=== PATIENT | female | born 1935 | race Caucasian/White ===

== ENCOUNTER 2017-02-28 16:07 | Emergency (ER) | payer MEDICARE ==
[~2017-02-28] VITALS: Ht 152.4 cm; Wt 54.4 kg
[2017-02-28] MEDS ORDERED: IV NS 0.9% 500 ML BAG IV ONE (16:30)
--- NOTE | 2017-02-28 16:30 | NUR ---
PT KATARINA RA FROM [facility], FOR GENERALIZED WEAKNESS AND REPORTS OF FREQUENT FALLS THE PAST FEW WEEKS. DENIES FALL TODAY. PT AAOX3. VSS. SEEN BY MD FOR EVAL. SAFETY AND COMFORT MEASURES PROVIDED. WILL MONITOR.
[2017-02-28 16:31] LABS: BASOPHILS # (AUTO) 0.3 /CMM (0.0-0.2); BASOPHILS % (AUTO) 3.3 % (0.0-2.0); EOSINOPHILS # (AUTO) 0.1 /CMM (0.0-0.7); EOSINOPHILS % (AUTO) 1.8 % (0.0-6.0); HEMATOCRIT 48 % (33-45); HEMOGLOBIN 15.4 g/dL (11.5-14.8); LYMPHOCYTES # (AUTO) 1.5 /CMM (0.8-4.8); LYMPHOCYTES % (AUTO) 19.6 % (20.0-44.0); MEAN CORPUSCULAR HEMOGLOBIN 29 PG (26.0-33.0); MEAN CORPUSCULAR HGB CONC 32 g/dl (31.0-36.0); MEAN CORPUSCULAR VOLUME 90 fL (82-100); MONOCYTES # (AUTO) 0.7 /CMM (0.1-1.30); MONOCYTES % (AUTO) 8.5 % (2.0-12.0); NEUTROPHILS # (AUTO) 5.2 /CMM (1.8-8.9); NEUTROPHILS % (AUTO) 66.8 % (43.0-81.0); PLATELET COUNT (AUTO) 193 /CMM (150-450); RED BLOOD CELL COUNT(AUTO) 5.33 MIL/uL (4.0-5.2); WHITE BLOOD COUNT (AUTO) 7.8 K/uL (4.3-11.0)
--- NOTE | 2017-02-28 16:40 | NUR ---
IV ACCESS STARTED, BLOOD DRAWN FOR LABS. PT MEDICATED ORDERED.
[2017-02-28 16:41] LABS: CALCIUM, SERUM 8.8 mg/dL (8.5-10.1); CARBON DIOXIDE 30 mmol/L (21-32); CHLORIDE 109 mmol/L (98-107); GLUCOSE 117 mg/dL (74-106); POTASSIUM 4.1 mmol/L (3.5-5.1); SODIUM SERUM 145 mmol/L (136-145); UREA NITROGEN, BLOOD 23 mg/dL (7-18)
[2017-02-28 16:46] LABS: ALANINE AMINOTRANSFERASE 11 U/L (12-78); ALBUMIN 3.3 g/dL (3.4-5.0); ASPARTATE AMINOTRANSFERASE 10 U/L (15-37); BILIRUBIN,DIRECT 0.2 mg/dL (0.0-0.2); BILIRUBIN,TOTAL 0.4 mg/dL (0.2-1.0); LIPASE 94 U/L (73-393); TOTAL PROTEIN, SERUM 6.7 g/dL (6.4-8.2)
[2017-02-28 16:49] LABS: TROPONIN I < 0.017 ng/mL (0.00-0.056)
[2017-02-28] MEDS ORDERED: TEMA30CA PO (16:54)
[2017-02-28] MEDS ORDERED: CYAN10009 PO (16:54)
[2017-02-28] MEDS ORDERED: ACET-2605 PO (16:54)
[2017-02-28] MEDS ORDERED: VALP250C PO (16:54)
[2017-02-28] MEDS ORDERED: CLOT15CR4 TP (16:54)
[2017-02-28] MEDS ORDERED: FLUO-119 PO (16:54)
[2017-02-28] MEDS ORDERED: LEVO112T2 PO (16:54)
[2017-02-28] MEDS ORDERED: TRAM50TA2 PO (16:54)
[2017-02-28] MEDS ORDERED: LISI-603 PO (16:54)
[2017-02-28] MEDS ORDERED: ASPI81TA2 PO (16:54)
[2017-02-28] MEDS ORDERED: CHOL100044 PO (16:54)
[2017-02-28] MEDS ORDERED: RALO60TA PO (16:54)
[2017-02-28] MEDS ORDERED: PRAV40TA3 PO (16:54)
[2017-02-28] MEDS ORDERED: FOLI0.4T2 PO (16:54)
[2017-02-28] MEDS ORDERED: NAPR250T2 PO (16:54)
[2017-02-28 17:02] LABS: ALKALINE PHOSPHATASE 58 U/L (46-116)
--- NOTE | 2017-02-28 17:35 | NUR ---
URINE SAMPLE OBTAINED, SENT.
[2017-02-28 17:45] LABS: APPEARANCE,URINE Slightly Cloudy (CLEAR); BILIRUBIN,URINE Negative (NEGATIVE); BLOOD, URINE Moderate Ery/uL (NEGATIVE); COLOR,URINE Yellow (YELLOW); KETONES,URINE Negative (NEGATIVE); LEUKOCYTE ESTERASE ,URINE Moderate (NEGATIVE); NITRITE, URINE Negative (NEGATIVE); PROTEIN,URINE 100 mg/dl (NEGATIVE); UGLUCOSE Negative (NEGATIVE); UROBILINOGEN,URINE 0.2 EU/dL (0.2)
[2017-02-28] MEDS ORDERED: CEFTRIAXONE 1GM BAG (ER ONLY) 1 GM/50 ML PIGGYBACK IV ONE (18:00)
[2017-02-28 18:01] LABS: BACTERIA,URINE 2+ /HPF (None Seen); RBC,URINE TOO NUMEROUS TO COUN /HPF (0-2); SQUAMOUS EPITHELIAL CELL,UR Few /HPF (None Seen); WBC,URINE TOO NUMEROUS TO COUN /HPF (0-3)
[2017-02-28] MEDS ORDERED: CEFTRIAXONE 1GM BAG (ER ONLY) 50 ML IV ONE (18:01)
--- NOTE | 2017-02-28 18:02 | NUR ---
CALLED [facility] FOR TRANSPORT BACK TO [facility], ETA 30 MIN
--- NOTE | 2017-02-28 18:25 | NUR ---
Patient discharged to home in stable condition. Written and verbal after care instructions given. Patient verbalizes understanding of instruction.
--- NOTE | 2017-02-28 18:25 | NUR ---
IV removed. Catheter intact and site benign. Pressure and 4x4 applied to site. No bleeding noted.
[2017-02-28 18:26] VITALS: BP 144/78
== END 2017-02-28 18:27 | disposition home or self-care (01) ==
LOC: ER 16:13
DX: N30.00 Acute cystitis without hematuria (principal); R53.1 Weakness; R79.89 Other specified abnormal findings of blood chemistry; E03.9 Hypothyroidism, unspecified; E78.5 Hyperlipidemia, unspecified; F03.90 Unspecified dementia, unspecified severity, without behavioral disturbance, psychotic disturbance, mood disturbance, and anxiety; I10 Essential (primary) hypertension; M19.90 Unspecified osteoarthritis, unspecified site; Z79.82 Long term (current) use of aspirin; Z99.3 Dependence on wheelchair; Z91.013 Allergy to seafood; Z88.8 Allergy status to other drugs, medicaments and biological substances
CPT/HCPCS: 36415; 71010-TC; 80048-TC; 80076-TC; 81000-TC; 83690-TC; 84484-TC; 85025-TC; 87086-TC; 87186-TC; A4606; J0696; J7040; Z7610